=== PATIENT | female | born 2000 | race Caucasian/White ===

== ENCOUNTER 2024-03-19 12:07 | Emergency (ER) | payer BC ==
[~2024-03-19] VITALS: Ht 170.2 cm; Wt 65.8 kg
[2024-03-19] MEDS ORDERED: AMOX TR-K CLV1 EAC2 PO (12:13)
[2024-03-19 12:17] VITALS: PULSE 84; RESP 19; TEMP 97.7; O2SAT 100
== END 2024-03-19 12:30 | disposition home or self-care (01) ==
LOC: ER 12:12
DX: S01.551A Open bite of lip, initial encounter (principal); W54.0XXA Bitten by dog, initial encounter; Y92.89 Other specified places as the place of occurrence of the external cause
CPT/HCPCS: 99283